=== PATIENT | male | born 2000 | race Caucasian/White ===

== ENCOUNTER 2022-01-06 08:02 | Day surgery (SDC) | payer BC ==
[2022-01-05 12:04] VITALS: BMI 21.5
[2022-01-06] MEDS ORDERED: BUPIVACAINE HCL/PF 2.5 MG/ML - 30 ML VIAL IJ ONE (08:21)
[2022-01-06 08:23] VITALS: TEMP 97.8
[2022-01-06] MEDS ORDERED: ONDANSETRON 4 MG/2 ML VIAL IVPUSH PRN (10:25)
[2022-01-06] MEDS ORDERED: LACTATED RINGERS SOLUTION 1,000 ML IV SCH (10:30)
[2022-01-06] MEDS ORDERED: PROPOFOL 40 ML ONE (10:36)
[2022-01-06] MEDS ORDERED: MIDAZOLAM HCL 2 MG/2 ML SINGLE DOSE VIAL ONE (10:37)
[2022-01-06] MEDS ORDERED: HYDROmorphone HCL/PF 1 MG/ML VIAL ONE (10:54)
[2022-01-06] MEDS ORDERED: ePHEDrine SULFATE 50 MG/1 ML AMPULE ONE (11:07)
[2022-01-06] MEDS ORDERED: ONDANSETRON 4 MG/2 ML VIAL ONE (11:19)
[2022-01-06] MEDS ORDERED: oxyCODONE HCL 5 MG TABLET PO PRN (11:19)
[2022-01-06] MEDS ORDERED: FENTANYL CITRATE/PF 50 MCG/ML VIAL ONE (11:20)
[2022-01-06 13:30] VITALS: BP 111/72; PULSE 62; RESP 19
== END 2022-01-06 12:50 | disposition home or self-care (01) ==
LOC: FASU 08:02
PROVIDERS: ATTEND Orthopaedic Surgery
PROC: 0SBD4ZZ Excision of Left Knee Joint, Percutaneous Endoscopic Approach (ICD-10-PCS; principal; 2022-01-06 10:53)
PROC: 0SCD4ZZ Extirpation of Matter from Left Knee Joint, Percutaneous Endoscopic Approach (ICD-10-PCS; 2022-01-06 10:53)
DX: M23.42 Loose body in knee, left knee (principal); M22.42 Chondromalacia patellae, left knee
CPT/HCPCS: 88304-TC; 94760